=== PATIENT | male | born 1995 | race African-American/Black ===

== ENCOUNTER 2017-05-17 21:28 | Emergency (ER) | payer BC, OTHER ==
[2017-05-17 21:34] VITALS: BP 145/87; PULSE 100; TEMP 98.2; BMI 22.9
--- NOTE | 2017-05-17 21:34 | PDOC ---
Rapid Medical Evaluation Time Seen by Provider: 05/17/17 21:31 Medical Evaluation: 05/17/17 21:31 I have performed a brief in-person evaluation of the patient. The patient presents with chief complaint of: right 5th digit dislocation. Reports jamming finger while playing basketball this afternoon Pertinent physical exam findings are: Nad unlabored breathing right 5th digit deformity I have ordered the following: xray of right hand The patient will proceed to the ED for further evaluation.
--- NOTE | 2017-05-17 21:57 | PDOC ---
History of Present Illness - General Chief Complaint: Injury Stated Complaint: RIGHT HAND INJURY Time Seen by Provider: 05/17/17 21:31 History Source: Patient Exam Limitations: No Limitations - History of Present Illness Initial Comments: 05/17/17 21:52 Best Contact: Pmhx: N/A Pshx:N/A Allergies: NKDA 22-year-old male with a right hand dominant presents to the emergency department complaining of pain to the right fifth digit. Patient states while playing basketball this evening, he jammed it against an opponent's knee. Patient noticed acute deformity. Patient states pain is described as 6/10 dull nonradiating intermittent discomfort. Pain is exacerbated on movement and alleviated at rest. Patient denies any other injuries no neck/back pains, extremity numbness or tingling sensation. Occurred: reports: just prior to arrival Past History - Past Medical History Allergies/Adverse Reactions: Allergies Allergy/AdvReac Type Severity Reaction Status Date / Time No Known Allergies Allergy Verified 05/17/17 21:32 Home Medications: Ambulatory Orders NK [No Known Home Medication] 05/17/17 COPD: No - Suicide/Smoking/Psychosocial Hx Smoking History: Never smoked Review of Systems - Review of Systems Able to Perform ROS?: Yes Comments:: 05/17/17 21:53 CONSTITUTIONAL: Absent: fever, chills, diaphoresis, generalized weakness, malaise, loss of appetite MUSCULOSKELETAL: +right 5th digit pain/deformity Absent: myalgia, arthralgia, joint swelling SKIN: Absent: rash, itching, pallor Is the patient limited Danish proficient: No *Physical Exam - Vital Signs Last Vital Signs Temp Pulse Resp BP Pulse Ox 98.2 F 100 H 18 145/87 99 05/17/17 21:32 05/17/17 21:32 05/17/17 21:32 05/17/17 21:32 05/17/17 21:32 - Physical Exam Comments: 05/17/17 21:54 GENERAL: Well developed, well nourished. Awake and alert. No acute distress. MUSCULOSKELETAL Excluding right 5th digit/Normal range of motion at all joints. No bony deformities or tenderness. No CVA tenderness. EXTREMITIES: No cyanosis. No clubbing. No edema. No calf tenderness. SKIN: Warm and dry. Normal capillary refill. No rashes. No jaundice. Right 5th digit +deformities +pain on palp cap refill <2sec ED Treatment Course - RADIOLOGY Radiograph Interpretation: 05/17/17 21:55 Xray right 5th digit +dislocation pip 05/17/17 22:40 post reduction right 5th digit aligned/ neg fx Progress Note - Progress Note Progress Note: right 5th digit reduced by DR. Darling *DC/Admit/Observation/Transfer Diagnosis at time of Disposition: Finger dislocation Qualifiers: Encounter type: initial encounter Qualified Code(s): S63.259A - Unspecified dislocation of unspecified finger, initial encounter - Discharge Dispostion Condition at time of disposition: Stable Admit: No - Referrals Referrals: Jose Briceño MD [Staff Physician] - - Patient Instructions Printed Discharge Instructions: DI for Finger Dislocation Additional Instructions: Ice; 20 mins on alternating with 20 mins off for 48 hours while awake. Rest Elevate Follow up with your orthopedic surgeon or the one listed on the discharge form. Return to the ER for severe/persistent/worsening symptoms, extremity numbness/ tingling sensation. - Post Discharge Activity
== END 2017-05-17 23:09 | disposition home or self-care (01) ==
LOC: JERFT 21:28
PROC: 0RSWXZZ Reposition Right Finger Phalangeal Joint, External Approach (ICD-10-PCS; principal; 2017-05-17)
DX: S63.286A Dislocation of proximal interphalangeal joint of right little finger, initial encounter (principal); W51.XXXA Accidental striking against or bumped into by another person, initial encounter; Y93.67 Activity, basketball; Y92.310 Basketball court as the place of occurrence of the external cause; Y99.8 Other external cause status
CPT/HCPCS: 73140-TC-RT-FY; 99281-25